=== PATIENT | male | born 1970 | race Caucasian/White ===

== ENCOUNTER 2016-11-05 02:55 | Emergency (ER) | payer MEDICAID ==
[2016-11-05 03:01] VITALS: BP 110/81; PULSE 64; RESP 12; TEMP 97.2; O2SAT 94
--- NOTE | 2016-11-05 03:08 | EDPHY ---
H & P Stated Complaint: ETOH INTOXICATION, MED CLEAR FOR [facility] Time Seen by Provider: 11/05/16 02:57 HPI/ROS: HPI The patient presents brought in by paramedics by ambulance for alcohol intoxication, requiring medical clearance for retirement. The patient was found sleeping in a public area and was unable to walk steadily because he said he had been drinking alcohol. He denies any current complaints. REVIEW OF SYSTEMS Constitutional: No fever, no chills. Eyes: No discharge. ENT: No sore throat. Cardiovascular: No chest pain, no palpitations. Respiratory: No cough, no shortness of breath. Gastrointestinal: No abdominal pain, no vomiting. Genitourinary: No hematuria. Musculoskeletal: No back pain. Skin: No rashes. Neurological: No headache. PMHx: Denies diabetes or hypertension Soc Hx: Homeless, alcohol use, tobacco use PHYSICAL General Appearance: Alert, no distress Eyes: Pupils equal and round no pallor or injection ENT, Mouth: Mucous membranes moist Respiratory: There are no retractions, lungs are clear to auscultation Cardiovascular: Regular rate and rhythm Gastrointestinal: Abdomen is soft and non-tender, no masses, bowel sounds normal Neurological: A&O, moves all extremities Skin: Warm and dry, no rashes Musculoskeletal: Neck is supple non tender Extremities: symmetrical, full range of motion Psychiatric: Patient is oriented X 3, there is no agitation Source: Patient, Police, EMS - Personal History Current Tetanus/Diphtheria Vaccine: Unsure Current Tetanus Diphtheria and Acellular Pertussis (TDAP): Unsure - Medical/Surgical History Hx Asthma: No Hx Chronic Respiratory Disease: No Hx Diabetes: No Hx Cardiac Disease: No Hx Renal Disease: No Hx Cirrhosis: No Hx Alcoholism: Yes Hx HIV/AIDS: No Hx Splenectomy or Spleen Trauma: No Other PMH: pt denies - Social History Smoking Status: Current every day smoker Constitutional: Initial Vital Signs Temperature (C) 36.2 C 11/05/16 03:01 Heart Rate 64 11/05/16 03:01 Respiratory Rate 12 11/05/16 03:01 Blood Pressure 110/81 H 11/05/16 03:01 O2 Sat (%) 94 11/05/16 03:01 O2 Delivery Mode Room Air Allergies/Adverse Reactions: No Known Allergies Allergy (Unverified 12/19/15 15:21) Home Medications: Medication Instructions Recorded NK [No Known Home Meds] 12/19/15 Medical Decision Making Differential Diagnosis: This is a 45-year-old man, found intoxicated in public, arrested by police for a warrant out for him, who is brought in by paramedics for medical clearance for retirement. The patient denies any complaints currently. He is clearly intoxicated. He was able to walk in the emergency room without much difficulty. He will be discharged into police custody. I doubt any head injury given nonfocal neurologic exam. Poly substance ingestion is a consideration. Departure - Departure Disposition: Home, Routine, Self-Care Clinical Impression: Alcoholic intoxication Qualifiers: Complication of substance-induced condition: uncomplicated Qualified Code(s): F10.920 - Alcohol use, unspecified with intoxication, uncomplicated Condition: Good Instructions: Alcohol Intoxication (ED) Referrals: [facility] [Outside] - As per Instructions
== END 2016-11-05 03:22 | disposition home or self-care (01) ==
LOC: EDUNIT#
DX: F10.920 Alcohol use, unspecified with intoxication, uncomplicated (principal); F17.200 Nicotine dependence, unspecified, uncomplicated